=== PATIENT | female | born 1990 | race Caucasian/White ===

== ENCOUNTER 2022-12-23 18:09 | Inpatient (IN) | payer MEDICAID ==
[~2022-12-23] VITALS: Ht 165.1 cm; Wt 112.5 kg
[2022-12-23] MEDS ORDERED: INFLUENZA VACCINE IM ONE (19:45)
[2022-12-23] MEDS ORDERED: PNEUMOCOCCAL VACCINE IM ONE (19:45)
[2022-12-23] MEDS ORDERED: PREN-176 PO (21:11)
[2022-12-23] MEDS ORDERED: METHYLERGONOVINE MALEATE 0.2 MG/ML IM PRN (21:15)
[2022-12-23] MEDS ORDERED: NALOXONE HCL 0.4 MG/ML 1ML VIAL IM PRN (21:15)
[2022-12-23] MEDS ORDERED: LIDOCAINE HCL 1% 20ML VIAL (Pyxis) INJ INFIL SCH (21:15)
[2022-12-23] MEDS ORDERED: BUTORPHANOL TARTRATE 2 MG/ML VIAL IV PRN (21:15)
[2022-12-23] MEDS: MISOPROSTOL 100MCG TABLET VG PRN (22:14)
[2022-12-23 22:36] LABS: BASOPHILS % 0.5 % (0.0-2.0); EOSINOPHILS % 0.3 % (0.0-5.0); HEMATOCRIT. 34.5 % (36.0-48.0); HEMOGLOBIN. 11.8 g/dL (12.0-16.0); LYMPHOCYTES % 18.5 % (20.0-50.0); MEAN CORPUSCULAR VOLUME 87.5 fL (81.0-99.0); MEAN PLATELET VOLUME 9.8 fl (7.4-10.4); MONOCYTES % 5.4 % (2.0-8.0); NEUTROPHILS % 75.3 % (40.0-76.0); PLATELET 231 x1000/uL (130-400); RED BLOOD CELL COUNT 3.95 mill/uL (4.2-5.4); RED CELL DISTRIBUTION WIDTH 14.4 % (11.6-14.6)
[2022-12-23 22:45] LABS: *AMPHETAMINES SCREEN URINE NEGATIVE (NEGATIVE); *BARBITURATES SCREEN URINE NEGATIVE (NEGATIVE); *BENZODIAZEPINES SCREEN URINE NEGATIVE (NEGATIVE); *COCAINE SCREEN URINE NEGATIVE (NEGATIVE); CANNABINOID URINE SCREEN NEGATIVE (NEGATIVE); METHADONE URINE SCREEN NEGATIVE (NEGATIVE); OPIATES URINE SCREEN NEGATIVE (NEGATIVE); PHENCYCLIDINE URINE SCREEN NEGATIVE (NEGATIVE)
[2022-12-23 23:12] LABS: INR 0.9; PARTIAL THROMBOPLASTIN TIME 28.8 sec (23.4-31.0); PROTHROMBIN TIME 9.7 sec (9.6-11.0)
[2022-12-23 23:14] LABS: CLARITY URINE CLEAR (CLEAR); COLOR URINE YELLOW (YELLOW); KETONES URINE NEGATIVE (NEGATIVE); LEUKOCYTE ESTERASE URINE NEGATIVE (NEGATIVE); NITRITE URINE NEGATIVE (NEGATIVE); OCCULT BLOOD URINE NEGATIVE (NEGATIVE); PH URINE 5.5 (4.5-8.0); PROTEIN URINE 2+ (NEGATIVE); SPECIFIC GRAVITY URINE 1.023 (1.005-1.030); UROBILINOGEN URINE 0.2 E.U./dL (0.2-1.0)
[2022-12-23 23:16] LABS: HEPATITIS B SURFACE ANTIGEN NEGATIVE
[2022-12-24 00:13] LABS: CHLORIDE 107 mEq/L (98-107)
[2022-12-24] MEDS: MISOPROSTOL 100MCG TABLET VG PRN ×5 (02:11→16:12)
[2022-12-24] MEDS: LACTATED RINGERS 1,000 ML IV SCH ×3 (02:12→20:15)
[2022-12-24] MEDS ORDERED: ROPIVACAINE HCL/PF EPIDURAL 200 ML EP SCH (09:30)
[2022-12-24] MEDS ORDERED: ROPIVACAINE HCL/PF EPIDURAL 200 ML EPI SCH (09:30)
[2022-12-24] MEDS: OXYTOCIN 30 UNITS/500ML NS PMX 500 ML IV SCH (20:13)
[2022-12-25] VITALS (7 sets, daily range): BP systolic 120–137; BP diastolic 71–80
[2022-12-25] MEDS: LACTATED RINGERS 1,000 ML IV SCH (01:50)
[2022-12-25] MEDS ORDERED: IBUPROFEN 800MG TABLET PO PRN (03:30)
[2022-12-25] MEDS ORDERED: LANOLIN OINT 7GM TUBE TOP PRN (03:30)
[2022-12-25] MEDS ORDERED: ACETAMINOPHEN WITH CODEINE 300/30MG TABLET PO PRN (03:30)
[2022-12-25] MEDS ORDERED: BISACODYL 10MG SUPP PR PRN (03:30)
[2022-12-25] MEDS ORDERED: DIPHENHYDRAMINE 25MG CAPSULE PO PRN (03:30)
[2022-12-25] MEDS ORDERED: BENZOCAINE/LANOLIN/ALOE VERA SPRAY TOP PRN (03:30)
[2022-12-25] MEDS ORDERED: RHO(D) IMMUNE GLOBULIN 300 MCG/SYR IM PRN (03:30)
[2022-12-25] MEDS ORDERED: OXYTOCIN 30 UNITS/500ML NS PMX 500 ML IV SCH (03:30)
[2022-12-25] MEDS ORDERED: GLYCERIN/WITCH HAZEL LEAF MEDICATED PAD TOP PRN (03:30)
[2022-12-25] MEDS ORDERED: HEMORRHOIDAL SUPP PR PRN (03:30)
[2022-12-25] MEDS ORDERED: ACETAMINOPHEN 325MG TABLET PO ONE (05:45)
[2022-12-25] MEDS ORDERED: LACTATED RINGERS 1,000 ML IV SCH (05:45)
[2022-12-25] MEDS: OXYTOCIN 30 UNITS/500ML NS PMX 500 ML IV SCH (06:47)
[2022-12-25] MEDS: MAGNESIUM/ALUMINUM HYDROXIDE/SIMETHICONE 30ML UDC PO SCH ×4 (07:30→20:52)
[2022-12-25] MEDS: SIMETHICONE 80MG TABLET CHEW PO SCH ×4 (08:00→20:53)
[2022-12-25] MEDS: PRENATAL VIT/FE FUMARATE/FA TABLET PO SCH (08:21)
[2022-12-25] MEDS ORDERED: INFLUENZA VACCINE IM SCH (09:00)
[2022-12-25] MEDS: DOCUSATE SODIUM 100MG CAPSULE PO SCH (20:53)
[2022-12-26 04:00] VITALS: BP 139/77
[2022-12-26 07:49] LABS: BASOPHILS % 0.2 % (0.0-2.0); EOSINOPHILS % 1.5 % (0.0-5.0); HEMATOCRIT. 29.2 % (36.0-48.0); HEMOGLOBIN. 9.9 g/dL (12.0-16.0); LYMPHOCYTES % 24.9 % (20.0-50.0); MEAN CORPUSCULAR HEMOGLOBIN 30.1 pg (28.0-32.0); MEAN CORPUSCULAR VOLUME 88.5 fL (81.0-99.0); MEAN PLATELET VOLUME 9.4 fl (7.4-10.4); MONOCYTES % 6.2 % (2.0-8.0); NEUTROPHILS % 67.2 % (40.0-76.0); PLATELET 155 x1000/uL (130-400); RED CELL DISTRIBUTION WIDTH 14.5 % (11.6-14.6)
[2022-12-26 08:00] VITALS: BP 153/92
[2022-12-26 08:55] VITALS: BP 150/87
[2022-12-26] MEDS: FERROUS SULFATE 325MG TABLET PO SCH ×2 (08:58→12:47)
[2022-12-26] MEDS: SIMETHICONE 80MG TABLET CHEW PO SCH ×3 (08:58→20:40)
[2022-12-26] MEDS: PRENATAL VIT/FE FUMARATE/FA TABLET PO SCH (08:58)
[2022-12-26] MEDS: MAGNESIUM/ALUMINUM HYDROXIDE/SIMETHICONE 30ML UDC PO SCH ×3 (08:58→20:40)
[2022-12-26] MEDS: IBUPROFEN 400MG TABLET PO PRN ×2 (08:58→20:40)
[2022-12-26] MEDS ORDERED: LACTATED RINGERS 1,000 ML IV SCH (11:55)
[2022-12-26 12:45] VITALS: BP 148/82
[2022-12-26] MEDS: LABETALOL HCL 100MG TABLET PO SCH ×2 (12:49→20:40)
[2022-12-26 16:10] VITALS: BP 138/81
[2022-12-26 20:00] VITALS: BP 146/80
[2022-12-26] MEDS: DOCUSATE SODIUM 100MG CAPSULE PO SCH (20:40)
[2022-12-27] VITALS: BP 140/82
[2022-12-27 04:00] VITALS: BP 133/76
[2022-12-27 04:08] LABS: HIV SCREEN 4G Non Reactive (Non Reactive)
[2022-12-27 08:15] VITALS: BP 153/90
[2022-12-27] MEDS ORDERED: IBUP-2029 MT (08:29)
[2022-12-27] MEDS ORDERED: LABE100T9 MT (08:29)
[2022-12-27 08:35] VITALS: BP 153/90
[2022-12-27 08:38] VITALS: BP 153/90
[2022-12-27] MEDS: PRENATAL VIT/FE FUMARATE/FA TABLET PO SCH (08:38)
[2022-12-27] MEDS: FERROUS SULFATE 325MG TABLET PO SCH (08:38)
[2022-12-27] MEDS: LABETALOL HCL 100MG TABLET PO SCH (08:38)
[2022-12-27] MEDS: IBUPROFEN 400MG TABLET PO PRN (08:38)
[2022-12-27] MEDS: SIMETHICONE 80MG TABLET CHEW PO SCH (10:27)
== END 2022-12-27 11:21 | disposition home or self-care (01) | DRG 560 ==
LOC: 8 EST LDRP 18:09 → OBSVTOIN 18:09 → 8EST 12-25 04:50
PROVIDERS: ADMIT Obstetrics & Gynecology; ATTEND Obstetrics & Gynecology
PROC: 10E0XZZ Delivery of Products of Conception, External Approach (ICD-10-PCS; principal; 2022-12-25)
PROC: 3E0S3BZ Introduction of Anesthetic Agent into Epidural Space, Percutaneous Approach (ICD-10-PCS; 2022-12-25)
PROC: 00HU33Z Insertion of Infusion Device into Spinal Canal, Percutaneous Approach (ICD-10-PCS; 2022-12-25)
PROC: 0KQM0ZZ Repair Perineum Muscle, Open Approach (ICD-10-PCS; 2022-12-25)
DX: O48.0 Post-term pregnancy (principal); Z37.0 Single live birth; D62 Acute posthemorrhagic anemia; O70.1 Second degree perineal laceration during delivery; O16.4 Unspecified maternal hypertension, complicating childbirth; Z20.822 Contact with and (suspected) exposure to COVID-19; O99.02 Anemia complicating childbirth; O99.214 Obesity complicating childbirth; Z3A.40 40 weeks gestation of pregnancy
CPT/HCPCS: 36415; 76805; 76818; 80053; 80305; 81003; 84550; 85025; 85379; 85384; 86592; 86762; 86850; 86900; 87340; 87389; 87426; 90686; 93970; 99281; G0378; J0595; J2795; A4315; J2590